=== PATIENT | female | born 1960 | race Two or more races ===

== ENCOUNTER 2022-01-15 07:52 | Emergency (ER) | payer OTHER ==
[~2022-01-15] VITALS: Ht 162.6 cm; Wt 75.7 kg
--- NOTE | 2022-01-15 07:59 | NUR ---
DR VILLANUEVA AT BEDSIDE FOR EVAL
[2022-01-15] MEDS ORDERED: KETOROLAC TROMETHAMINE INJ 30 MG/ML VIAL IM ONE (08:00)
[2022-01-15] MEDS ORDERED: CYCLOBENZAPRINE 10 MG TABLET PO ONE (08:00)
[2022-01-15] MEDS ORDERED: KETOROLAC TROMETHAMINE INJ 30 MG/ML VIAL ONE (08:07)
[2022-01-15] MEDS ORDERED: CYCLOBENZAPRINE 10 MG TABLET ONE (08:07)
--- NOTE | 2022-01-15 08:17 | NUR ---
TORADOL IM GIVEN LEFT DELTOID
[2022-01-15] MEDS ORDERED: IBUP-1957 PO ×2 (10:09→12:51)
[2022-01-15] MEDS ORDERED: CYCL5TAB PO ×2 (10:09→12:51)
[2022-01-15] MEDS ORDERED: HYDROCODONE/APAP 5/325MG TABLET PO ONE (11:00)
[2022-01-15] MEDS ORDERED: HYDROCODONE/APAP 5/325MG TABLET ONE (11:13)
[2022-01-15] MEDS ORDERED: HYDR-4209 PO (12:51)
[2022-01-15 13:06] VITALS: BP 135/66
--- NOTE | 2022-01-15 13:07 | NUR ---
Patient discharged to home in stable condition. Written and verbal after care instructions given. Patient verbalizes understanding of instruction.
== END 2022-01-15 13:07 | disposition home or self-care (01) ==
LOC: ER 07:57
DX: M54.42 Lumbago with sciatica, left side (principal); M79.605 Pain in left leg; I10 Essential (primary) hypertension; Z60.2 Problems related to living alone
CPT/HCPCS: 96372; 99283; J1885